=== PATIENT | male | born 1990 | race Two or more races ===

== ENCOUNTER 2019-10-28 18:07 | Emergency (ER) | payer OTHER ==
[~2019-10-28] VITALS: Ht 180.3 cm; Wt 82.0 kg
[2019-10-28 18:23] VITALS: BP 125/94
[2019-10-28] MEDS ORDERED: VITAMIN D (18:27)
[2019-10-28] MEDS ORDERED: ARIP15TA2 PO (18:27)
[2019-10-28] MEDS ORDERED: PROP10TA10 PO (18:27)
== END 2019-10-28 18:56 | disposition left against medical advice (07) ==
LOC: ER 18:07
DX: Z53.21 Procedure and treatment not carried out due to patient leaving prior to being seen by health care provider (principal)

== ENCOUNTER 2021-10-13 00:24 | Emergency (ER) | payer OTHER ==
[~2021-10-13] VITALS: Ht 177.8 cm; Wt 80.0 kg
[~2021-10-13 00:24] MED LIST: ARIP15TA2 PO; PROP10TA10 PO; VITAMIN D
[2021-10-13 00:49] LABS: BASOPHILS % 2.6 % (0.0-2.0); EOSINOPHILS % 4.7 % (0.0-5.0); HEMATOCRIT. 47.6 % (42.0-52.0); HEMOGLOBIN. 15.9 g/dL (14.0-18.0); LYMPHOCYTES % 33.8 % (20.0-50.0); MEAN CORPUSCULAR HEMOGLOBIN 29.8 pg (28.0-32.0); MEAN CORPUSCULAR VOLUME 89.1 fL (80.0-94.0); MEAN PLATELET VOLUME 10.1 fl (7.4-10.4); MONOCYTES % 12.9 % (2.0-8.0); PLATELET 231 x1000/uL (130-400); RED BLOOD CELL COUNT 5.35 mill/uL (4.7-6.1); RED CELL DISTRIBUTION WIDTH 14.1 % (11.6-14.6)
[2021-10-13 00:56] LABS: CHLORIDE 106 mEq/L (98-107)
[2021-10-13 01:13] LABS: ETHANOL BLOOD < 10 mg/dL
[2021-10-13] MEDS: OLANZAPINE 5MG TABLET PO SCH ×2 (10:12→17:00)
[2021-10-13 10:22] LABS: CLARITY URINE CLEAR (CLEAR); COLOR URINE YELLOW (YELLOW); KETONES URINE TRACE (NEGATIVE); LEUKOCYTE ESTERASE URINE TRACE (NEGATIVE); NITRITE URINE NEGATIVE (NEGATIVE); OCCULT BLOOD URINE NEGATIVE (NEGATIVE); PH URINE 5.5 (4.5-8.0); PROTEIN URINE NEGATIVE (NEGATIVE); SPECIFIC GRAVITY URINE 1.025 (1.005-1.030)
[2021-10-13 10:31] LABS: *AMPHETAMINES SCREEN URINE PRESUMTIVE POSITIVE (NEGATIVE); *BARBITURATES SCREEN URINE NEGATIVE (NEGATIVE); *BENZODIAZEPINES SCREEN URINE NEGATIVE (NEGATIVE); *COCAINE SCREEN URINE NEGATIVE (NEGATIVE); CANNABINOID URINE SCREEN NEGATIVE (NEGATIVE); METHADONE URINE SCREEN NEGATIVE (NEGATIVE); OPIATES URINE SCREEN NEGATIVE (NEGATIVE); PHENCYCLIDINE URINE SCREEN NEGATIVE (NEGATIVE)
[2021-10-13 19:09] VITALS: BP 108/64
== END 2021-10-13 19:24 ==
LOC: ER 00:24
DX: R44.0 Auditory hallucinations (principal); Z20.822 Contact with and (suspected) exposure to COVID-19
CPT/HCPCS: 36415; 80053; 80305; 80307; 80320; 80329; 81003; 84443; 85025; 99285; C9803; U0003; U0005; G0480

== ENCOUNTER 2022-07-24 06:23 | Emergency (ER) | payer OTHER, MEDICARE ==
[~2022-07-24] VITALS: Ht 170.2 cm; Wt 82.0 kg
[2022-07-24] MEDS ORDERED: ARIPIPRAZOLE 5MG TABLET PO ONE (08:15)
[2022-07-24 08:37] LABS: HEMATOCRIT. 42.4 % (42.0-52.0); HEMOGLOBIN. 14.6 g/dL (14.0-18.0); MEAN CORPUSCULAR HEMOGLOBIN 30.1 pg (28.0-32.0); MEAN CORPUSCULAR VOLUME 87.4 fL (80.0-94.0); MEAN PLATELET VOLUME 9.7 fl (7.4-10.4); PLATELET 232 x1000/uL (130-400); RED BLOOD CELL COUNT 4.85 mill/uL (4.7-6.1); RED CELL DISTRIBUTION WIDTH 14.6 % (11.6-14.6)
[2022-07-24 09:05] LABS: CHLORIDE 104 mEq/L (98-107)
[2022-07-24 09:15] LABS: ETHANOL BLOOD < 10 mg/dL
[2022-07-24 10:41] LABS: PLATELET ESTIMATE NORMAL
[2022-07-24] MEDS ORDERED: LORAZEPAM 1MG TABLET PO ONE (11:00)
[2022-07-24 11:28] LABS: CLARITY URINE CLEAR (CLEAR); COLOR URINE YELLOW (YELLOW); KETONES URINE NEGATIVE (NEGATIVE); LEUKOCYTE ESTERASE URINE NEGATIVE (NEGATIVE); NITRITE URINE NEGATIVE (NEGATIVE); OCCULT BLOOD URINE NEGATIVE (NEGATIVE); PH URINE 6.5 (4.5-8.0); PROTEIN URINE NEGATIVE (NEGATIVE); UROBILINOGEN URINE 0.2 E.U./dL (0.2-1.0)
[2022-07-24 11:49] LABS: *AMPHETAMINES SCREEN URINE PRESUMTIVE POSITIVE (NEGATIVE); *BARBITURATES SCREEN URINE NEGATIVE (NEGATIVE); *BENZODIAZEPINES SCREEN URINE NEGATIVE (NEGATIVE); *COCAINE SCREEN URINE NEGATIVE (NEGATIVE); CANNABINOID URINE SCREEN NEGATIVE (NEGATIVE); METHADONE URINE SCREEN NEGATIVE (NEGATIVE); OPIATES URINE SCREEN NEGATIVE (NEGATIVE); PHENCYCLIDINE URINE SCREEN NEGATIVE (NEGATIVE)
[2022-07-24] MEDS ORDERED: LORAZEPAM 1MG TABLET PO SCH (12:45)
[2022-07-24] MEDS ORDERED: POTASSIUM CHLORIDE 20MEQ TABLET SR PO ONE (18:00)
[2022-07-25] MEDS ORDERED: OLANZAPINE 10 MG/VIAL IM ONE (20:30)
[2022-07-26 15:40] VITALS: BP 37/72
[2022-07-26] MEDS ORDERED: LORAZEPAM 2MG/ML CPJ IM ONE (16:15)
== END 2022-07-26 16:20 ==
LOC: ER 06:23
DX: F20.9 Schizophrenia, unspecified (principal); Z20.822 Contact with and (suspected) exposure to COVID-19
CPT/HCPCS: 36415; 80053; 80305; 80307; 80320; 80329; 81003; 85025; 87426; 99285; C9803; J2060; J3490; Z7610; G0480